=== PATIENT | female | born 1985 | race Caucasian/White ===

== ENCOUNTER 2016-12-29 17:23 | Emergency (ER) | payer SELFPAY ==
[~2016-12-29] VITALS: Ht 157.5 cm; Wt 59.6 kg
[2016-12-29 17:24] VITALS: BP 135/87
[2016-12-29 18:17] LABS: HEMATOCRIT 41.4 % (34.6-47.8); HEMOGLOBIN 14.3 g/dL (11.7-16.4); WHITE BLOOD COUNT 9.1 x10^3/uL (3.4-10)
[2016-12-29 18:26] LABS: BLOOD UREA NITROGEN 7 mg/dL (7-18)
[2016-12-29 18:34] LABS: PATH.CAST-FLAG NOT PRESENT; SPERM-FLAG NOT PRESENT; SRC-FLAG NOT PRESENT; XTAL-FLAG NOT PRESENT; YLC-FLAG NOT PRESENT
== END 2016-12-29 19:12 | disposition home or self-care (01) ==
LOC: ED 18:28
DX: N12 Tubulo-interstitial nephritis, not specified as acute or chronic (principal)
CPT/HCPCS: 36415; 80048; 81001; 82040; 84703; 85025; 87077; 87086; 87186; 99284

== ENCOUNTER 2017-01-16 14:40 | Emergency (ER) | payer OTHER ==
[~2017-01-16] VITALS: Ht 157.5 cm; Wt 58.5 kg
[2017-01-16 15:20] LABS: HEMATOCRIT 43.3 % (34.6-47.8); HEMOGLOBIN 14.5 g/dL (11.7-16.4); WHITE BLOOD COUNT 9.5 x10^3/uL (3.4-10)
[2017-01-16 15:31] LABS: BLOOD UREA NITROGEN 8 mg/dL (7-18)
[2017-01-16 15:38] LABS: ASPARTATE AMINO TRANSFERASE 14 U/L (15-37)
[2017-01-16] MEDS ORDERED: KETOROLAC 30 MG/1 ML ONE (16:42)
[2017-01-16] MEDS ORDERED: HYDROcodone/APAP 5/325 TABLET ONE (16:42)
[2017-01-16] MEDS ORDERED: KETOROLAC 30 MG/1 ML IM ONE (17:00)
[2017-01-16] MEDS ORDERED: HYDROcodone/APAP 5/325 TABLET PO ONE (17:00)
[2017-01-16 17:39] VITALS: BP 104/69
== END 2017-01-16 19:05 | disposition home or self-care (01) ==
LOC: ED 17:13
DX: N89.8 Other specified noninflammatory disorders of vagina (principal); R10.9 Unspecified abdominal pain
CPT/HCPCS: 36415; 76830; 80053; 81001; 84703; 85025; 87077; 87086; 87186; 87210; 87491; 87591; 87808; 96372; 99285; J1885

== ENCOUNTER 2017-01-21 18:45 | Emergency (ER) | payer SELFPAY ==
[~2017-01-21] VITALS: Ht 157.5 cm; Wt 58.4 kg
[2017-01-21 19:38] LABS: HEMATOCRIT 39.7 % (34.6-47.8); HEMOGLOBIN 13.3 g/dL (11.7-16.4); WHITE BLOOD COUNT 7.7 x10^3/uL (3.4-10)
[2017-01-21 19:47] LABS: ASPARTATE AMINO TRANSFERASE 12 U/L (15-37); BLOOD UREA NITROGEN 7 mg/dL (7-18)
[2017-01-21 19:50] VITALS: BP 105/74
== END 2017-01-21 21:00 | disposition home or self-care (01) ==
LOC: ED 20:30
DX: N93.8 Other specified abnormal uterine and vaginal bleeding (principal); N83.12 Corpus luteum cyst of left ovary
CPT/HCPCS: 36415; 76830; 80053; 81003; 84703; 85025; 99285

== ENCOUNTER 2017-06-03 23:50 | Emergency (ER) | payer MEDICAID, OTHER ==
[~2017-06-03] VITALS: Ht 154.9 cm; Wt 58.3 kg
[2017-06-03 23:51] VITALS: BP 137/92
== END 2017-06-04 02:01 | disposition home or self-care (01) ==
LOC: ED 23:59
DX: S60.022A Contusion of left index finger without damage to nail, initial encounter (principal); X58.XXXA Exposure to other specified factors, initial encounter; Y93.89 Activity, other specified; Y92.89 Other specified places as the place of occurrence of the external cause; Y99.8 Other external cause status
CPT/HCPCS: 29130; 99284